=== PATIENT | female | born 1975 | race Caucasian/White ===

== ENCOUNTER 2024-03-22 01:05 | Emergency (ER) | payer OTHER, SELFPAY ==
[2024-03-22 01:17] VITALS: BP 183/106; PULSE 72; RESP 40; TEMP 36.1; O2SAT 99; BMI 27.1
--- NOTE | 2024-03-22 01:35 | ED_ITS ---
HPI - General Adult General Chief complaint: Flank Pain Stated complaint: Kidney pain Time Seen by Provider: 03/22/24 01:25 Source: patient Mode of arrival: ambulatory History of Present Illness HPI narrative: nearly hysterical 49-year-old female presents to the emergency department with right flank pain 1 hour prior to arrival, sudden onset. No trauma or injury, no fever. No prior history of similar symptoms. Prior C-sections and prior cholecystectomy, none recent. no use of anticoagulants. Is now having urinary urgency and frequency but no dysuria. Nauseated but no vomiting, that started after the flank pain. Good bowel movement earlier today, no bloody stools. No prior history of bowel obstructions. Has not tried taking any medications to help with her symptoms. Has been putting on the emergency light 3 times in the 10 minutes she has had a weight for a physician as there are 6 patients ahead of her. Denies any recent fever, other symptoms of illness. Reports that her past medical history is fairly benign, bupropion for mental health, will go before weight loss since September. Prior and cholecystectomy, denies other abdominal surgeries. Allergy to penicillins. Nonsmoker. ROS is notable for the urinary /abdominal symptoms as described above, otherwise denies times 12 systems. Related Data Home Medications ?Medication ?Instructions ?Recorded ?Confirmed bupropion HCl 75 mg tablet 75 mg PO TID 03/22/24 03/22/24 semaglutide (weight loss) 0.5 0.5 mg subcut QWEEK 03/22/24 03/22/24 mg/0.5 mL subcutaneous pen injector (Wegovy) Allergies Allergy/AdvReac Type Severity Reaction Status Date / Time Penicillins Allergy Mild Hives Verified 03/22/24 01:22 [facility] Social History Smoking Status: Never smoker Do you use any of these nicotine containing products: None Second hand tobacco smoke exposure: No How often do you have a drink containing alcohol: never AUDIT-C Alcohol total score: 0 Non-prescribed substance use: denies use service: No Exam Const: Vital Signs, click to edit/add: Vital Signs - 24 hr 03/22/24 01:17 03/22/24 03:10 Temperature 96.9 F L Pulse Rate [Pulse Oximeter] 72 84 Respiratory Rate 40 H 18 Blood Pressure [Ri ght Upper Arm] 183/106 H 135/69 Pulse Oximetry 99 99 Oxygen Delivery Me thod Room Air Room Air Documenting provider has reviewed patient's vital signs: yes Common normals: alert General appearance: well kempt Other: Near hysterics from pain. Does express some guilt when I explained to her the number of patients that her in the ED right now some of which are critically ill. appears well nourished, well hydrated. Non- Toxic HENMT: Common normals: normocephalic and head/scalp atraumatic Head and scalp: normocephalic and atraumatic Face and sinus: normal facial exam Mouth: oral and palatal mucosa normal Eye: Common normals: conjunctivae normal General eye: normal appearance of both eyes Conjunctiva: conjunctiva(e) normal Neck & C-Spine: Common normals: full ROM and no lymphadenopathy Resp: Common normals: normal respiratory effort, no use of accessory muscles and clear to auscultation bilaterally Effort & inspection: able to speak in complete sentences Auscultation: clear to auscultation bilaterally Cardio: Common normals: regular rate, regular rhythm, S1 normal heart sound, S2 normal heart sound and no murmurs Rate: regular rate Rhythm: regular rhythm Heart sounds: S1 normal and S2 normal GI: Common normals: Normal to inspection, nondistended, normoactive bowel sounds present, soft to palpation, no hepatosplenomegaly and no masses Palp ation: soft and no hepatosplenomegaly Other: resists exam. Right flank pain/ CVA tenderness noted. No obvious masses. Some suprapubic area tenderness but certainly no rebound tenderness or guarding. Bowels are soft with normoactive bowel sounds. : Bladder/kidney exam: CVA tenderness Back & Pelvis: Common normals: thoracic and lumbar spine normal to inspection General back: CVA tenderness CVA tenderness: right Lumbar spine/lower back: normal to inspection; no lumbar spinal tenderness Extremity: Common normals: normal to inspection, normal capillary refill and no pedal edema Neuro: Sensorium/orientation: alert Motor exam: no movement abnormalities noted Psych: Common normals: thought process normal Appearance: well kempt Tho ught process: normal thought process Skin: Common normals: no rashes or lesions noted General skin exam: no rashes or lesions noted Course Course ED Course: 49-year-old female with sudden onset of right-sided flank pain now radiating into the suprapubic area highly suspicious for kidney stone. Cannot exclude bladder infection, enteritis, urinary infection, ureteral obstruction, appendicitis, bowel obstruction, pancreatitis, among many others. Urine sample needed, counseled patient. Will place IV, give Toradol, 5 of oxycodone and 4 of Zofran. Typical intra-abdominal labs. Await urinalysis to decide on CT plan. Anticipate CT without contrast. Reevaluation(s) Time of Reevaluation #1: 03:39 Reevaluation #1: Counseled patient on CT findings, labs are reassuring. CT showing a 3 mm right UVJ stone which is consistent with expected pathology. Patient feeling markedly better after fluids, Toradol and Zofran as well as the 5 mg of oxycodone. We discussed management. At this time she does not have any red flags for infection, kidney complications, electrolyte abnormalities or other worrisome findings. Patient will be discharged home, prescriptions for Toradol, Zofran and a few oxycodone if needed are given. She is instructed to drink lots of fluids, move frequently. Strain her urine so that she can tell when the stone passes. Follow up with primary care if not passed in 2 weeks. Alarm symptoms reviewed that would warrant ED presentation. She verbalizes understanding and agreement. Vital Signs Vital signs: Initial Vital Signs Temperature 96.9 F L 03/22/24 01:17 Temperature Source Temporal Artery Scan 03/22/24 01:17 Pulse Rate 72 03/22/24 01:17 Pulse Rhythm Regular 03/22/24 01:17 Pulse Strength 3+ Normal 03/22/24 01:17 Respiratory Rate 40 H 03/22/24 01:17 Blood Pressure 183/106 H 03/22/24 01:17 Blood Pressure Mean 131 H 03/22/24 01:17 Blood Pressure Position Supine 03/22/24 01:17 Pulse Oximetry 99 03/22/24 01:17 Oxygen Delivery Method Room Air 03/22/24 01:17 Vital Signs Temperature 96.9 F L 03/22/24 01:17 Pulse Rate 72 03/22/24 01:17 Respiratory Rate 40 H 03/22/24 01:17 Blood Pressure 183/106 H 03/22/24 01:17 Pulse Oximetry 99 03/22/24 01:17 Oxygen Delivery Method Room Air 03/22/24 01:17 Temperature 96.9 F L 03/22/24 01:17 Pulse Rate 84 03/22/24 03:10 Respiratory Rate 18 03/22/24 03:10 Blood Pressure 135/69 03/22/24 03:10 Pulse Oximetry 99 03/22/24 03:10 Oxygen Delivery Method Room Air 03/22/24 03:10 Medications Administered Medications: Discontinued Medications Generic Name Dose Route Start Last Admin Trade Name Markel PRN Reason Stop Dose Admin Sodium Chloride 1,000 mls @ 1,000 mls/hr 03/22/24 01:41 03/22/24 02:51 0.9 % Sodium Chloride 1000 Ml IV 03/22/24 02:40 Infused .Q1H DAVID Infusion Ketorolac Tromethamine 15 mg 03/22/24 01:33 03/22/24 01:40 Ketorolac 15 Mg/Ml Inj IVP 03/22/24 01:34 15 mg ONCE ONE Administration Ondansetron HCl 4 mg 03/22/24 01:33 03/22/24 01:40 Ondansetron 2 Mg/Ml Inj IVP 03/22/24 01:34 4 mg ONCE ONE Administration Oxycodone HCl 5 mg 03/22/24 01:35 03/22/24 01:40 Oxycodone 5 Mg Tablet PO 03/22/24 01:36 5 mg ONCE ONE Administration Medical Decision Making Lab Data Lab results reviewed: Yes I reviewed the patient's lab results Lab results narrative: Labs reassuring. Labs: Lab Results 03/22/24 03/22/24 Range/Units :33 01:40 WBC 12.78 H (4.50-11.00) K/uL RBC 4.46 (4.00-5.20) m/uL Hgb 14.0 (12.0-16.0) gm/dL Hct 41.0 (33.0-51.0) % MCV 92 (80-100) fL MCH 31 (26-34) pg MCHC 34 (32-36) gm/dL RDW Coeff of Kanika 12.6 (11.5-15.5) % Plt Count 241 (140-440) K/uL Neut % (Auto) 64.5 (42.0-72.0) % Lymph % (Auto) 25.1 (20-44) % [place] % (Auto) 6.9 (0.0-11.0) % Eos % (Auto) 2.7 (0.0-7.0) % Baso % (Auto) 0.5 (0.0-3.0) % Neut # (Auto) 8.20 H (1.7-7.0) K/uL Lymph # (Auto) 3.20 H (0.90-2.90) K/uL [place] # (Auto) 0.90 (0.00-0.90) K/UL Eos # (Auto) 0.30 (0.00-0.50) K/uL Baso # (Auto) 0.10 (0.00-0.30) K/uL Abs Immat Gran (auto) 0.00 (0.00-0.30) K/uL Imm/Tot Granulo (auto) 0.3 % Sodium 136 (135-149) mmol/L Potassium 3.2 L (3.6-5.1) mmol/L Chloride 108 (96-114) mmol/L Carbon Dioxide 17 L (20-32) mmol/L Anion Gap 11 (7-15) mEq/L BUN 13 (5-24) mg/dL Creatinine 0.8 (0.5-1.5) mg/dL Estimated Creat Clear 70.37 Estimated GFR 90 ml/min Glucose 160 H (60-115) mg/dL Calcium 9.5 (8.4-10.6) mg/dL Total Bilirubin 0.8 (0.1-1.5) mg/dL AST 24 (12-35) U/L ALT 18 (4-35) U/L Alkaline Phosphatase 75 (40-150) U/L C-Reactive Protein < 0.5 L (0.5-1.0) mg/dL Total Protein 7.4 (6.0-8.3) g/dL Albumin 4.2 (3.3-5.0) g/dL Lipase 73 (23-300) U/L Urine Color Yellow (Yellow) Urine Appearance Clear (Clear) Urine pH 7.0 (5.0-8.5) Ur Specific [place] 1.020 (1.000-1.030) Urine Protein Negative (Negative) Urine Glucose (UA) Negative (Negative) Urine Ketones 1+ A (Negative) Urine Blood 3+ A (Negative) Urine Nitrite Negative (Negative) Urine Bilirubin Negative (Negative) Urine Urobilinogen 0.2 (0.2-1.0) Ur Leukocyte Esterase Negative (Negative) Urine RBC 10-25 A (0-2) Urine WBC 5-10 A (0-5) Ur Squamous Epith Cells Few (None-Few) Urine Bacteria Few A (None) Hyaline Casts Few (None-Few) Urine HCG, Qual Negative (Negative) Imaging Data CT scan - abdomen: Attestation: I have reviewed the pertinent imaging results. My impression: Small right UVJ stone Radiologist's impression: Impression: Partially obstructing right UVJ stone measuring 3 millimeters with mild hydronephrosis. Please note that all CT scans at this facility use dose modulation, iterative reconstruction, and/or weight-based dosing when appropriate to reduce radiation dose to as low as reasonably achievable. Discharge Plan Discharge Clinical Impression: Calculus of ureterovesical junction (UVJ) Patient Disposition: Home w/ Parent or Adult Condition: Improved Instructions: Ureteral Stones (ED) Additional Instructions: As we discussed, you have a 3 mm kidney stone at the right UV junction which is where the ureter meets the bladder. This is the most common spot for it to get hung up and hurt in a female. A 3 mm stone should pass without any intervention or complication. Drink lots of fluids and move frequently after you wake in the morning. I will give you prescriptions for Toradol which is the anti- inflammatory pain medication that you can take up to every 6 hours. I would automatically plan to take this for at least the next 24 hours. Your next dose would be due at around 8:00 a.m.. I will also give you some anti nausea medicine, Zofran because this type of organ pain often causes nausea and vomiting which can worsen dehydration and prevent the stone therefore from passing. It is okay to add in Tylenol 1000 mg every 6 hours as well. I will give you a very small supply of oxycodone to use if the pain becomes severe again. Often, the Toradol is more effective. We will give you a strainer for your urine so that you may more easily be able to tell if you do passed the stone. It can take a few weeks for the stone to pass. If you start running high fevers, have persistent bleeding, are so weak that you can not get from her bed to the bathroom or have any other signs of severe illness, you should come to an emergency department. You may return to all work and school activities once you are not requiring any of the oxycodone. He should follow up with her primary care provider if you still have symptoms and her stone has not passed in 2 weeks. Activity Level: No Restrictions Discharge Diet: Regular Prescriptions: No Action bupropion HCl 75 mg tablet 75 mg PO TID Rx Instructions: administer 6 hours apart Wegovy 0.5 mg/0.5 mL pen injector 0.5 mg subcut QWEEK Follow Up/Referrals: Provider,Not a Local [Primary Care Provider] - Stand Alone Forms: [employer] Info Instructions
[2024-03-22] MEDS: ONDANSETRON 2 MG/ML inj 4 MG IVP (01:40)
[2024-03-22] MEDS: OXYCODONE 5 MG TABLET PO (01:40)
[2024-03-22] MEDS: KETOROLAC 15 MG/ML inj IVP (01:40)
[2024-03-22] MEDS: 0.9 % SODIUM CHLORIDE 1000 ml 1,000 ML IV (01:48)
[2024-03-22 01:59] LABS: Basophils Percent Auto 0.5 % (0.0-3.0); Eosinophils Percent Auto 2.7 % (0.0-7.0); Immature Granulocytes Pct Auto 0.3 %; Lymphocytes Percent Auto 25.1 % (20-44); Mean Corpuscular HGB Conc 34 gm/dL (32-36); Mean Corpuscular Hemoglobin 31 pg (26-34); Mean Corpuscular Volume 92 fL (80-100); Monocytes Percent Auto 6.9 % (0.0-11.0); Neutrophils Percent Auto 64.5 % (42.0-72.0); Platelet Count* 241 K/uL (140-440); RDW Coefficient of Variation % 12.6 % (11.5-15.5); Red Blood Count 4.46 m/uL (4.00-5.20); White Blood Count* 12.78 K/uL (4.50-11.00)
[2024-03-22 02:01] LABS: Slide Review Reflex No
[2024-03-22 02:12] LABS: Chloride* 108 mmol/L (96-114)
[2024-03-22 02:13] LABS: Albumin* 4.2 g/dL (3.3-5.0); Sodium* 136 mmol/L (135-149)
[2024-03-22 02:14] LABS: Appearance Urine Clear (Clear); Bilirubin Urine Negative (Negative); Blood Urine 3+ (Negative); Color Urine Yellow (Yellow); Glucose Urine Negative (Negative); Ketones Urine 1+ (Negative); Leukocyte Esterase Urine Negative (Negative); Nitrite Urine Negative (Negative); Protein Urine Negative (Negative); Urobilinogen Urine 0.2 (0.2-1.0)
[2024-03-22 02:14] LABS: Potassium* 3.2 mmol/L (3.6-5.1)
[2024-03-22 02:16] LABS: Anion Gap 11 mEq/L (7-15); Bilirubin Total* 0.8 mg/dL (0.1-1.5); Carbon Dioxide* 17 mmol/L (20-32); Creatinine* 0.8 mg/dL (0.5-1.5); Est. Creatinine Clearance* 70.37; Estimated Glomerular Filt Rate 90 ml/min
[2024-03-22 02:17] LABS: Alanine Aminotransferase* 18 U/L (4-35); Alkaline Phosphatase* 75 U/L (40-150); Aspartate Amino Transferase* 24 U/L (12-35); Blood Urea Nitrogen* 13 mg/dL (5-24); Calcium* 9.5 mg/dL (8.4-10.6); Glucose* 160 mg/dL (60-115); Lipase* 73 U/L (23-300); Total Protein* 7.4 g/dL (6.0-8.3)
[2024-03-22 02:22] LABS: C Reactive Protein* < 0.5 mg/dL (0.5-1.0)
[2024-03-22 02:32] LABS: Bacteria Urine Few; Squamous Epithelial Cell Urine Few (None-Few)
[2024-03-22 02:33] LABS: Hyaline Casts Urine Few (None-Few)
--- NOTE | 2024-03-22 02:34 | CRLHL7_ITS ---
For Patients: As a result of the Century Cures Act, medical imaging exams and procedure reports are released immediately into your electronic medical record. You may view this report before your referring provider. If you have questions, please contact your health care provider. Indication: Right flank pain Technique: Noncontrast CT through the abdomen and pelvis with multiplanar reformats. Comparison: None Findings: Lower chest: Mild atelectasis and/or scarring. Hepatobiliary: No significant parenchymal abnormality is appreciated. Spleen: Unremarkable. Pancreas: No acute abnormality appreciated. Adrenal glands: No acute abnormality appreciated. Kidneys: Mild right hydronephrosis, no proximal calculus. Left kidney is unremarkable. Bowel: No obstruction. No focal perienteric or pericolonic stranding is appreciated. Vascular: Trace calcified atherosclerosis. Lymph nodes: No gross lymphadenopathy. Peritoneum: No free air. No free fluid. : Right UPJ stone measures 3 millimeters. Soft tissues: No acute abnormality appreciated. Bones: No acute fracture. No lytic or blastic lesion. Impression: Partially obstructing right UVJ stone measuring 3 millimeters with mild hydronephrosis. Please note that all CT scans at this facility use dose modulation, iterative reconstruction, and/or weight-based dosing when appropriate to reduce radiation dose to as low as reasonably achievable. Dictated by Sergey Kelly MD @ 03/22/2024 3:12:50 AM (Electronically Signed)
[2024-03-22 02:35] LABS: Ur HCG Qualitative* Negative (Negative)
[2024-03-22 03:10] VITALS: BP 135/69; PULSE 84; RESP 18; O2SAT 99
== END 2024-03-22 03:51 | disposition home or self-care (01) ==
PROVIDERS: Emergency Provider Family Medicine
DX: N20.1 Calculus of ureter (principal)
CPT/HCPCS: 36415; 74176; 80053; 81001; 81025; 83690; 85025; 86140; 87086; 96374; 96375; 99284; A9270; J1885; J2405; J7030